=== PATIENT | female | born 1995 | race Two or more races ===

== ENCOUNTER 2018-04-01 12:39 | Emergency (ER) | payer OTHER ==
[~2018-04-01] VITALS: Ht 170.2 cm; Wt 56.7 kg
[2018-04-01] MEDS ORDERED: oxyCODONE HCL/Acetaminophen 5/325mg ORAL ONE (12:45)
--- NOTE | 2018-04-01 13:06 | Emergency Room Report ---
History of Present Illness General Chief Complaint: Lower Extremity Injury Source: Patient Present Illness HPI Patient rammed her L little toe before presentation. It is bent to the side. Minimal tingling but has sensation. No meds taken. Pain rated 10/10, burning and aching, some radiation to foot. No somatic complaints. Not . Allergies: Coded Allergies: No Known Allergies (Unverified , 04/01/18) Patient History Past Medical History: see triage record Social History: Denies: smoking Social History Narrative works for [employer] Now: No Reviewed Nursing Documentation: PMH: Agreed; PSxH: Agreed Nursing Documentation-PMH Past Medical History: No Stated History Review of Systems Constitutional: Denies: fever Gastrointestinal: Denies: nausea Genitourinary: Reports: see HPI Musculoskeletal: Reports: see HPI Skin: Denies: rash Neurological: Reports: see HPI Physical Exam Vital Signs Date Time Temp Pulse Resp B/P (MAP) Pulse Ox O2 Delivery O2 Flow Rate FiO2 04/01/18 12:41 98.1 91 18 112/69 96 Room Air Sp02 EP Interpretation: reviewed, normal General Appearance: well appearing, no apparent distress, GCS 15 Head: normocephalic, atraumatic Eyes: bilateral eye normal inspection, bilateral eye PERRL ENT: hearing grossly normal, normal voice, moist mucus membranes Neck: full range of motion, supple Respiratory: no respiratory distress, speaking full sentences Cardiovascular #1: regular rate, rhythm Cardiovascular #2: 2+ radial (R), 2+ dorsalis pedis (L) - good cap fill of toe Gastrointestinal: normal inspection Musculoskeletal: no calf tenderness, other - deformity of L little toe Neurologic: alert, motor strength/tone normal, sensory intact Psychiatric: mood/affect normal Skin: no rash Medical Decision Making Diagnostic Impression: Primary Impression: Toe fracture, left Qualified Codes: S92.525A - Nondisplaced fracture of middle phalanx of left lesser toe(s), initial encounter for closed fracture ER Course Patient presents with left little toe injury. Differential includes fracture versus dislocation. By the appearance of the toe appears to be fractured. X- rays are indicated. Also analgesics. The patient will be given a Percocet and Motrin. Xray with fracture. Improved pain with meds. Aubrey tape with better alignment. Neurovasc checked by me and normal. Discussed need for follow up along with treatment plan including ortho follow up. Patient stable for outpatient observation and treatment. Other X-Ray Diagnostic Results Other X-Ray Diagnostic Results : # of Views/Limited Vs Complete: 3 View Indication: Pain Interpretation: no dislocation, other - fx and angulation Impression: Other Electronically Signed by: Electronically signed by Enrrique Caldwell MD Last Vital Signs Date Time Temp Pulse Resp B/P (MAP) Pulse Ox O2 Delivery O2 Flow Rate FiO2 04/01/18 14:15 98.4 86 20 124/74 97 Room Air Status: improved Disposition: HOME, SELF-CARE Condition: Improved Scripts Ibuprofen* (MOTRIN*) 600 Mg Tablet 600 MG ORAL Q6H PRN for For Pain, #20 TAB Prov: Enrrique Caldwell MD 04/01/18 Hydrocodone Bit/Acetaminophen 5-325* (NORCO 5-325*) 1 Each Tablet 1 TAB ORAL Q6H PRN for For Pain, #6 TAB 0 Refills Prov: Enrrique Caldwell MD 04/01/18 Enrrique Caldwell MD Apr 01, 2018 13:06
[2018-04-01] MEDS ORDERED: IBUPROFEN600 MG ORAL (14:10)
[2018-04-01] MEDS ORDERED: NORCO 5-325 TA1 EACH ORAL (14:10)
[2018-04-01 14:15] VITALS: BP 124/74
--- NOTE | 2018-04-02 12:41 | Diagnostic Imaging Report ---
Indication: Foot pain Comparison: None Findings: 3 views of the left foot were obtained. There is acute fracture involving the fifth proximal phalange. Soft tissue swelling noted. Examination is negative otherwise. IMPRESSION: Acute fracture of the fifth proximal phalange
== END 2018-04-01 14:17 | disposition home or self-care (01) ==
LOC: EMR 13:52
DX: S92.525A Nondisplaced fracture of middle phalanx of left lesser toe(s), initial encounter for closed fracture (principal); W23.0XXA Caught, crushed, jammed, or pinched between moving objects, initial encounter; Y93.9 Activity, unspecified; Y92.9 Unspecified place or not applicable
CPT/HCPCS: 99283